=== PATIENT | male | born 1960 | race Caucasian/White ===

== ENCOUNTER 2024-06-01 16:22 | Emergency (ER) | payer MEDICARE, SELFPAY ==
[2024-06-01 16:26] VITALS: BP 150/95
--- NOTE | 2024-06-01 16:31 | ED.GENMED ---
ED Provider Triage
<Sandro Byrd PA-C - Last Filed: 06/01/24 16:32>
-
Patient seen by provider in Triage?: Seen in Triage
64-year-old male presents complaining of pleuritic mid back pain. The pain is sharp in nature in between his shoulder blades and radiates down slightly when he breathes. He notes occasional shortness of breath. Also hurts to move. No known
injury. He denies abdominal pain. Denies fever.
Vital signs are stable through triage but does appear uncomfortable. Workup initiated with blood work EKG and PE study
Seen by provider in triage but warrants further assessment
History of Present Illness
<Sandro Byrd PA-C - Last Filed: 06/01/24 16:32>
General
Chief Complaint: Back Pain
Time Seen by Provider: 06/01/24 20:15
<Rosa M Ghotra NP - Last Filed: 06/01/24 22:14>
General
Source: patient
Exam Limitations: none
Nursing documentation reviewed up to this point in time: agreed with
History of Present Illness
History of Present Illness:
Patient to ED with complaint of upper back pain. Hurts to take deep breath, hurts to move. Symptoms started a few days ago. Denies any history of trauma. Admits to stacie doshi this week but states this is not unuasual activity. Denies
fever/chills, n/v/d. NO n/v/diaphoresis. to ED accompanied by spouse for eval.
Past History
<Sandro Byrd PA-C - Last Filed: 06/01/24 16:32>
Past History
ED Past Medical History: HTN and Other (Diverticulitis)
ED Past Surgical History: Orthopedic and Other (Ophthalmology surgery)
Social History
Tobacco: Non-smoker
Alcohol: None
Drug: None
Personal:
Living: with family
Employment: Not employed
Family History
Family History: Other
Phy Exam
<Rosa M Ghotra NP - Last Filed: 06/01/24 22:14>
General Physical Exam
General Presentation: well appearing and moderate distress
General age: appears stated age
General Skin: warm and dry
General Habitus: normal
General Mental: alert
Cardiovascular Exam
Cardiovascular Exam: regular rate/rhythm and no edema
Pulmonary Exam
Pulmonary Exam: lungs clear, no respiratory distress and chest non tender
Musculoskeletal Exam
Musculoskeletal Exam: full ROM, neuro vasc intact and other (Upper back pain, L>R)
Skin Exam
Skin Exam: normal color, warm/dry and no rash
Psychiatric Exam
Psychiatric Exam: normal mood/affect
Course
<Sandro Byrd PA-C - Last Filed: 06/01/24 16:32>
Orders/Labs/Results
Orders:
Orders
06/01/24 16:28
CT Chest PE Study Urgent
Comment:
Reason For Exam: pleuritic pain
06/01/24 16:29
Electrocardiogram (*1) Urgent
Reason for Study: Chest Pain
EKG- Treatment ONCE
06/01/24 16:38
Complete Blood Count/With Diff Urgent
Comprehensive Metabolic Panel Urgent
Lipase Urgent
Troponin I Urgent
06/01/24 20:41
Urinalysis Reflex To Culture Urgent
Date Specimen was Collected: 06/01/24
Time Specimen was Collected: 20:36
06/01/24 20:53
Diazepam [Valium] 5 mg PO NOW STA
Abnormal Lab Results
06/01/24 06/01/24
16:38 20:41
WBC 11.3 H 10^3/uL
(4.8-10.8)
RBC 4.61 L 10^6/uL
(4.70-6.10)
MCH 31.9 H pg
(27.0-31.0)
Absolute Neuts (auto) 8.3 H 10^3/uL
(1.4-6.5)
Absolute Monos (auto) 1.1 H 10^3/uL
(0.1-0.6)
Lymphocytes % 14.4 L %
(20.5-51.1)
Monocytes % 10.0 H %
(1.7-9.3)
Glucose 102 H mg/dl
(70-99)
Urine Ketones 2+ A
(Negative)
06/01/24 16:38
06/01/24 16:38
Vital Signs
Initial and Last Documented VS:
Initial Vital Signs
Temp Pulse Resp BP Pulse Ox
97.9 F 88 18 150/95 100
06/01/24 16:26 06/01/24 16:26 06/01/24 16:26 06/01/24 16:26 06/01/24 16:26
Last Documented Vital Signs
Temp Pulse Resp BP Pulse Ox
97.9 F 81 18 142/95 98
06/01/24 16:26 06/01/24 21:26 06/01/24 21:26 06/01/24 21:26 06/01/24 21:26
<Rosa M Ghotra OFFICE REP - Last Filed: 06/01/24 22:14>
Orders/Labs/Results
Orders:
Orders
06/01/24 16:28
CT Chest PE Study Urgent
Comment:
Reason For Exam: pleuritic pain
06/01/24 16:29
Electrocardiogram (*1) Urgent
Reason for Study: Chest Pain
EKG- Treatment ONCE
06/01/24 16:38
Complete Blood Count/With Diff Urgent
Comprehensive Metabolic Panel Urgent
Lipase Urgent
Troponin I Urgent
06/01/24 20:41
Urinalysis Reflex To Culture Urgent
Date Specimen was Collected: 06/01/24
Time Specimen was Collected: 20:36
06/01/24 20:53
Diazepam [Valium] 5 mg PO NOW STA
Abnormal Lab Results
06/01/24 06/01/24
16:38 20:41
WBC 11.3 H 10^3/uL
(4.8-10.8)
RBC 4.61 L 10^6/uL
(4.70-6.10)
MCH 31.9 H pg
(27.0-31.0)
Absolute Neuts (auto) 8.3 H 10^3/uL
(1.4-6.5)
Absolute Monos (auto) 1.1 H 10^3/uL
(0.1-0.6)
Lymphocytes % 14.4 L %
(20.5-51.1)
Monocytes % 10.0 H %
(1.7-9.3)
Glucose 102 H mg/dl
(70-99)
Urine Ketones 2+ A
(Negative)
06/01/24 16:38
06/01/24 16:38
Vital Signs
Initial and Last Documented VS:
Initial Vital Signs
Temp Pulse Resp BP Pulse Ox
97.9 F 88 18 150/95 100
06/01/24 16:26 06/01/24 16:26 06/01/24 16:26 06/01/24 16:26 06/01/24 16:26
Last Documented Vital Signs
Temp Pulse Resp BP Pulse Ox
97.9 F 81 18 142/95 98
06/01/24 16:26 06/01/24 21:26 06/01/24 21:26 06/01/24 21:26 06/01/24 21:26
<Rosa M Ghotra NP - Last Filed: 06/01/24 22:14>
*Radiology
Radiology exam reviewed: radiology read reviewed
*Critical Care Note
Total Time (30-74mins, 75-104mins- exclusive of procedures): Not Applicable
<Rosa M Ghotra NP - Last Filed: 06/01/24 22:14>
Update Note
Update Note:
Patient to ED with upper back pain. Pain started this past week. Worse with movement. Labs reviewed/ EKG NSR, Troponin neg. CT chest without concerning findings. No PE, No pneumonia. Able to reproduce with palpation over left scapula and along
trapezius suggesting musculoskeletal origin. WIll discharge home with course of muscle relaxant and pain meds. WIll follow up with PCP on Tuesday. Given instructions on s/s to return to ED and he is agreeable to pln.
ED Attending Note
<Sandro Byrd PA-C - Last Filed: 06/01/24 16:32>
-
Portions of this chart may have been created with voice recognition software.� Occasional wrong word or��sound alike� substitutions may have occurred due to the inherent limitations of voice recognition software.
Discharge Plan
Departure
Patient Disposition: Home (Routine Discharge)
Date of Disposition: 06/01/24
Time of Disposition: 20:53
Patient with high blood pressure during this ER visit?: No
Condition: Good
Covid-19: Not Applicable
Discharge Problem:
Back pain
Instructions: Upper Back Pain (DC), Using Cold for Pain
Prescriptions:
New
oxycodone 5 mg capsule
5 mg PO Q4H PRN (Reason: Pain) Qty: 15 0RF
metaxalone 800 mg tablet
800 mg PO TID PRN (Reason: muscle pain) Qty: 12 0RF
No Action
carboxymethylcellulose sodium [Refresh Tears] 15 ML drops
1 drp BOTH EYES PRN PRN (Reason: dry eyes)
lisinopril 10 MG tablet
10 mg PO DAILY
ibuprofen 200 MG tablet
600 mg PO PRN PRN (Reason: pain)
docosahexaenoic acid-epa 1 CAP capsule
1 cap PO DAILY
multivitamin with folic acid [Tab-A-Olivia] 1 TABLET tablet
1 tab PO DAILY
Vitamin B-6:
1 tab PO DAILY
acetaminophen 325 MG tablet
650 mg PO Q4HWA 0RF
hydrocodone-acetaminophen 1 TABLET tablet
1 - 2 tab PO Q4HPRN PRN (Reason: moderate to severe pain) Qty: 20 0RF
famotidine 20 MG tablet
20 mg PO BID Qty: 28 0RF
Rx Instructions:
Take 20 mg twice a day for 14 days
ascorbic acid (vitamin C) [Vitamin C] 500 MG tablet
1,000 mg PO BID Qty: 56 0RF
Rx Instructions:
Take 1,000 mg twice a day for 14 days
aspirin 81 MG tablet,chewable
81 mg PO DAILY Qty: 14 0RF
Rx Instructions:
Take 81 mg daily for 14 days
zinc sulfate 220 MG capsule
220 mg PO DAILY Qty: 14 0RF
Rx Instructions:
Take 220 mg daily for 14 days
cholecalciferol (vitamin D3) 1,000 UNITS tablet
2,000 units PO DAILY Qty: 28 0RF
Rx Instructions:
Take 2,000 units daily for 14 days
melatonin 5 MG tablet
5 mg PO HS Qty: 14 0RF
Rx Instructions:
Take 5 mg daily at bedtime for 14 days
Referrals:
Debra Romeo, [Family Provider] - Follow up in 2-3 days
Interventions
Interventions:
*Risk Screen - Suicide Last Done: 06/01/24 16:26
*General Assessment Last Done: 06/01/24 16:26
*ED COVID-19 Vaccine History Last Done: 06/01/24 16:26
*Nursing Disposition Last Done: 06/01/24 21:32
Discharge Date and Time
Discharge Date/Time: 06/01/24 21:33
Print Language: [id number]
Musculoskeletal Injury Exam
<Rosa M Ghotra NP - Last Filed: 06/01/24 22:14>
Musculoskeletal Injury Exam
Upper Back:
Pain with Movement?: Moderate (L>R, Pain along left trapezius)
Tender to palpation?: Moderate
Soft tissue swelling?: None
External deformity and angulation?: None
Joint effusion?: None
Contusion?: None
Hematoma-local bleeding into tissue?: None
Strain- Sprain- Tear (Connective tissue injury)?: Moderate
Crepitus with movement?: No
Joint instability?: No
Malalignment/deformity?: No
Range of motion: Full
Distal skin color and temperature: normal-warm & good color
Capillary Refill: normal
Normal distal neurovascular exam?: Yes
[2024-06-01 16:50] LABS: % Basophils 0.5 % (0-2); % Immature Granulocytes 0.3 % (0-0.5); % Lymphocytes 14.4 % (20.5-51.1); % Neutrophils 73.8 % (42.2-75.2); Absolute Basophils 0.1 10^3/uL (0-0.2); Absolute Eosinophils 0.1 10^3/uL (0-0.7); Absolute Lymphocytes 1.6 10^3/uL (1.2-3.4); Absolute Monocytes 1.1 10^3/uL (0.1-0.6); Absolute Neutrophils 8.3 10^3/uL (1.4-6.5); Hematocrit 41.8 % (39.0-52.0); Hemoglobin 14.7 g/dL (13.0-18.0); Mean Corp Hgb Conc. 35.2 g/dL (33.0-37.0); Mean Corpuscular Hgb 31.9 pg (27.0-31.0); Mean Corpuscular Volume 90.7 fL (80.0-94.0); Nucleated Red Blood Cells % 0 % (-); Platelet Count 240 10^3/uL (130-400); Red Blood Cell Count 4.61 10^6/uL (4.70-6.10); White Blood Cell Count 11.3 10^3/uL (4.8-10.8)
[2024-06-01 17:03] LABS: ALT (SGPT) 15 U/L (0-50); AST (SGOT) 20 U/L (17-59); Albumin 4.3 g/dl (3.5-5.0); Alkaline Phosphatase 94 U/L (38-126); Blood Urea Nitrogen 10 mg/dl (9-20); Calcium 9.1 mg/dl (8.4-10.2); Carbon Dioxide 24 mmol/L (22-30); Chloride 100 mmol/L (98-107); Glucose 102 mg/dl (70-99); Potassium 4.4 mmol/L (3.5-5.1); Sodium 135 mmol/L (135-145); Total Bilirubin 0.8 mg/dl (0.2-1.3); Total Protein 7.4 g/dl (6.3-8.2); eGFR > 60.00
[2024-06-01 17:04] LABS: Lipase 86 U/L (23-300)
[2024-06-01 17:14] LABS: Troponin I < 0.012 ng/ml
[2024-06-01 20:52] LABS: Urine Albumin Trace (Neg - Trace); Urine Bilirubin Negative (Negative); Urine Character Clear (Clear); Urine Color Yellow; Urine Glucose Negative (Negative); Urine Ketone 2+ (Negative); Urine Leukocyte Negative (Negative); Urine Nitrite Negative (Negative); Urine Occult Blood Negative (Negative); Urine Urobilinogen Negative (Neg - 1+)
[2024-06-01] MEDS: VALIUM 5 MG PO (21:16)
[2024-06-01 21:26] VITALS: BP 142/95
== END 2024-06-01 21:33 | disposition home or self-care (01) ==
LOC: EMR 16:22
PROVIDERS: Nurse Practitioner; Physician Assistant; EMERGENCY PHYSICIAN Emergency Medicine; FAMILY PHYSICIAN Internal Medicine
DX: M54.6 Pain in thoracic spine (principal); I10 Essential (primary) hypertension
CPT/HCPCS: 99284; 71275; 80053; 81003; 83690; 84484; 85025; Q9967

== ENCOUNTER 2024-09-13 11:48 | Emergency (ER) | payer MEDICARE, OTHER, SELFPAY ==
[2024-09-13 12:03] VITALS: BP 157/111
[2024-09-13 12:27] VITALS: BMI 24.6
[2024-09-13] MEDS: DECADRON 8 MG IV (13:12)
[2024-09-13] MEDS: TORADOL 15 MG IV (13:13)
[2024-09-13 13:17] LABS: % Basophils 0.7 % (0-2); % Immature Granulocytes 0.3 % (0-0.5); % Lymphocytes 21.1 % (20.5-51.1); % Monocytes 11.8 % (1.7-9.3); % Neutrophils 64.1 % (42.2-75.2); Absolute Basophils 0.1 10^3/uL (0-0.2); Absolute Eosinophils 0.2 10^3/uL (0-0.7); Absolute Lymphocytes 2.1 10^3/uL (1.2-3.4); Absolute Monocytes 1.2 10^3/uL (0.1-0.6); Absolute Neutrophils 6.3 10^3/uL (1.4-6.5); Hemoglobin 15.5 g/dL (13.0-18.0); Mean Corpuscular Hgb 32.6 pg (27.0-31.0); Mean Corpuscular Volume 90.3 fL (80.0-94.0); Mean Platelet Volume 9.7 fL (7.4-10.4); Nucleated Red Blood Cells % 0 % (-); Platelet Count 160 10^3/uL (130-400); Red Blood Cell Count 4.76 10^6/uL (4.70-6.10); Red Cell Dist. Width 12.6 % (11.5-14.5); White Blood Cell Count 9.8 10^3/uL (4.8-10.8)
[2024-09-13 13:23] LABS: Blood Urea Nitrogen 15 mg/dl (9-20); Carbon Dioxide 24 mmol/L (22-30); Chloride 107 mmol/L (98-107); Estimated Creatinine Clearance 89 ml/min; Glucose 101 mg/dl (70-99); Sodium 139 mmol/L (135-145); eGFR > 60.00
[2024-09-13 13:26] LABS: Erythrocyte Sed Rate 21 mm/hour (0-20)
--- NOTE | 2024-09-13 14:29 | ED.GENMED ---
History of Present Illness
General
Chief Complaint: Musculo-Skeletal Complaint
Source: patient
Exam Limitations: none
Time Seen by Provider: 09/13/24 12:14
History of Present Illness
History of Present Illness:
Nontraumatic pain and swelling to the left ankle over 24 hours. No systemic symptoms no fever chills. No recent flulike symptoms. No rash. No history of same. Pain is moderate in nature.
Past History
Past History
ED Past Medical History: HTN and Other (Diverticulitis)
ED Past Surgical History: Bowel resection, Orthopedic and Other (Ophthalmology surgery)
Social History
Tobacco: Non-smoker
Alcohol: None
Drug: None
Personal:
Living: with family
Employment: Not employed
Family History
Family History: Other
Phy Exam
Physical Exam
Physical Exam:
GENERAL: Alert and oriented in no apparent distress
EYE: Orbits normal.
CARDIAC: Regular rate and rhythm
LUNGS: No respiratory distress
NEUROLOGICAL: Alert and oriented , grossly non-focal
SKIN: Warm and dry, no rash or lesion, no discoloration, skin intact.
MUSCULOSKELETAL: Mild swelling to the left ankle. No significant warmth. No erythema. Good distal pulses and color. Calf nontender. No cord. All other joints negative.
PSYCH: Normal and appropriate interaction.
Course
Orders/Labs/Results
Orders:
Orders
09/13/24 12:08
Ankle, left 3 view CR [CR Ankle - Left Min 3 Views ] Urgent
Comment:
Reason For Exam: pain and swelling
09/13/24 12:49
IV Insert/Care/Rem.- Treatment PRN
09/13/24 12:50
Dexamethasone Sod Phosphate [Decadron] 8 mg IV NOW STA
Ketorolac [Toradol] 15 mg IV NOW STA
09/13/24 13:03
Basic Metabolic Panel Urgent
CRP [C-Reactive Protein] Urgent
Complete Blood Count/With Diff Urgent
ESR [Erythrocyte Sed Rate] Urgent
Lyme Progressive Urgent
09/13/24 13:46
Add On- LAB Urgent
Tests Added?: uric acid
09/13/24 14:28
Adiel Wrap Left-Treatment ONCE
Crutches-Treatment ONCE
Abnormal Lab Results
09/13/24
13:03
MCH 32.6 H pg
(27.0-31.0)
Absolute Monos (auto) 1.2 H 10^3/uL
(0.1-0.6)
Monocytes % 11.8 H %
(1.7-9.3)
ESR 21 H mm/hour
(0-20)
Glucose 101 H mg/dl
(70-99)
C-Reactive Protein 57.10 H mg/L
(0.0-10.00)
09/13/24 13:03
09/13/24 13:03
Vital Signs
Initial and Last Documented VS:
Initial Vital Signs
Temp Pulse Resp BP Pulse Ox
98.4 F 59 18 157/111 98
09/13/24 12:03 09/13/24 12:03 09/13/24 12:03 09/13/24 12:03 09/13/24 12:03
Last Documented Vital Signs
Temp Pulse Resp BP Pulse Ox
98.4 F 59 18 157/111 98
09/13/24 12:03 09/13/24 12:03 09/13/24 12:03 09/13/24 12:03 09/13/24 12:03
MDM/Problems Addressed
Differential Diagnosis Includes:
Patient with a monoarticular arthritis to the left ankle. Clinically have a very low suspicion for septic arthritis. He has no systemic symptoms no fever no warmth no erythema. Inflammatory markers are mildly elevated as expected. White count is
normal. Will treat with steroids rest and orthopedic follow-up.
*Radiology
Radiology exam reviewed: preliminary read by ED provider (Negative. Degenerative changes) and radiology read reviewed (Degenerative changes)
*Pulse Oximetry
Patient hypoxic: no
*Critical Care Note
Total Time (30-74mins, 75-104mins- exclusive of procedures): Not Applicable
Data Reviewed
Review of Other/Old Records Reveals: Labs and Testing
ED Attending Note
-
Portions of this chart may have been created with voice recognition software.� Occasional wrong word or��sound alike� substitutions may have occurred due to the inherent limitations of voice recognition software.
Discharge Plan
Departure
Patient Disposition: Home (Routine Discharge)
Date of Disposition: 09/13/24
Time of Disposition: 14:31
Patient with high blood pressure during this ER visit?: Yes
Discharge Problem:
[place] arthritis left ankle, Monoarticular arthritis left ankle
Instructions: BLOOD PRESSURE
Prescriptions:
New
prednisone 10 mg tablet
10 mg PO DAILY Qty: 20 0RF
Rx Instructions:
4 tablets day 1. Then 1 less tablet every other day until gone
No Action
carboxymethylcellulose sodium [Refresh Tears] 15 ML drops
1 drp BOTH EYES PRN PRN (Reason: dry eyes)
lisinopril 10 MG tablet
10 mg PO DAILY
ibuprofen 200 MG tablet
600 mg PO PRN PRN (Reason: pain)
docosahexaenoic acid-epa 1 CAP capsule
1 cap PO DAILY
multivitamin with folic acid [Tab-A-Olivia] 1 TABLET tablet
1 tab PO DAILY
Vitamin B-6:
1 tab PO DAILY
acetaminophen 325 MG tablet
650 mg PO Q4HWA 0RF
hydrocodone-acetaminophen 1 TABLET tablet
1 - 2 tab PO Q4HPRN PRN (Reason: moderate to severe pain) Qty: 20 0RF
famotidine 20 MG tablet
20 mg PO BID Qty: 28 0RF
Rx Instructions:
Take 20 mg twice a day for 14 days
ascorbic acid (vitamin C) [Vitamin C] 500 MG tablet
1,000 mg PO BID Qty: 56 0RF
Rx Instructions:
Take 1,000 mg twice a day for 14 days
aspirin 81 MG tablet,chewable
81 mg PO DAILY Qty: 14 0RF
Rx Instructions:
Take 81 mg daily for 14 days
zinc sulfate 220 MG capsule
220 mg PO DAILY Qty: 14 0RF
Rx Instructions:
Take 220 mg daily for 14 days
cholecalciferol (vitamin D3) 1,000 UNITS tablet
2,000 units PO DAILY Qty: 28 0RF
Rx Instructions:
Take 2,000 units daily for 14 days
melatonin 5 MG tablet
5 mg PO HS Qty: 14 0RF
Rx Instructions:
Take 5 mg daily at bedtime for 14 days
oxycodone 5 mg capsule
5 mg PO Q4H PRN (Reason: Pain) Qty: 15 0RF
metaxalone 800 mg tablet
800 mg PO TID PRN (Reason: muscle pain) Qty: 12 0RF
Referrals:
Debra Romeo DO [Family Provider] -
Supa Varghese MD [Active] - Follow up in 2-3 days
Activity Restrictions/Additional Instructions:
Prednisone as directed. You can start that tomorrow.
Prescription was sent to your pharmacy
Call orthopedics for close follow-up
Return immediately with fever chills increasing pain or swelling redness or any other concerning symptoms
Interventions
Interventions:
*Risk Screen - Suicide Last Done: 09/13/24 12:27
*General Assessment Last Done: 09/13/24 12:03
*Neglect/Abuse Screening Last Done: 09/13/24 12:27
*ED- Fall Risk Assessment Last Done: 09/13/24 12:27
ED-Musculoskeletal Assessment Last Done: 09/13/24 12:27
Discharge Date and Time
Print Language: [id number]
[2024-09-13 14:56] VITALS: BP 133/84
== END 2024-09-13 14:58 | disposition home or self-care (01) ==
LOC: EMR 11:48
PROVIDERS: EMERGENCY PHYSICIAN Emergency Medicine; FAMILY PHYSICIAN Internal Medicine
DX: M19.072 Primary osteoarthritis, left ankle and foot (principal); I10 Essential (primary) hypertension
CPT/HCPCS: 99284; 96374; 96375; 73610; 80048; 85025; 85652; 86140; 86618